=== PATIENT | female | born 1980 | race Caucasian/White ===

== ENCOUNTER 2020-04-29 17:58 | Inpatient (IN) | payer OTHER ==
[2020-04-29] MEDS ORDERED: ceFAZolin 3 GM in SODIUM CHLORIDE 0.9% 100 ML IVPB ONE (18:17)
[2020-04-29] MEDS ORDERED: CITRIC ACID-SODIUM CITRATE 15 ML CUP PO ONE (18:17)
[2020-04-29] MEDS ORDERED: CARBOPROST TROMETHAMINE 250 MCG/ML 1 ML AMP IM PRN (18:20)
[2020-04-29] MEDS ORDERED: METHYLERGONOVINE 0.2 MG/ML 1 ML AMP IM PRN (18:20)
[2020-04-29] MEDS ORDERED: TERBUTALINE 1 MG/ML VIAL SQ PRN (18:20)
[2020-04-29] MEDS ORDERED: OXYTOCIN 10 UNIT/ML 1 ML VIAL IM PRN (18:20)
[2020-04-29] MEDS ORDERED: LIDOCAINE 0.5% (PF) 5 MG/ML (50 ML SDV) SQ PRN (18:20)
[2020-04-29] MEDS: LACTATED RINGERS 1,000 ML IV SCH (18:28)
[2020-04-29 18:41] LABS: Basophils % (A) 0 %; Eosinophils % (A) 0 %; HCT 40.3 % (34.0-46.0); HGB 13.8 gm/dL (11.4-16.0); Lymphocytes % (A) 8 %; MCH 29.8 pg (25.0-35.0); MCHC 34.1 g/dL (31.0-37.0); MCV 87.2 fL (80.0-100.0); Mean Platelet Volume 8.2; Monocytes # (A) 0.5 k/uL (0-1.0); Monocytes % (A) 4 %; Neutrophils # (A) 11.3 k/uL (1.3-7.7); Neutrophils % (A) 88 %; Platelet Count 166 k/uL (150-450); RBC 4.63 m/uL (3.80-5.40); RDW 14.2 % (11.5-15.5); WBC 12.9 k/uL (3.8-10.6)
[2020-04-29] MEDS ORDERED: KETOROLAC 15 MG/ML 1 ML VIAL ONE (18:42)
[2020-04-29] MEDS ORDERED: ONDANSETRON 4 MG/2 ML VIAL ONE (18:42)
[2020-04-29] MEDS ORDERED: HYDROmorphone (PF) 1 MG/ML ONE (18:42)
[2020-04-29] MEDS ORDERED: SUCCINYLCHOLINE CHLORIDE 100 MG/5 ML SYR IV ONE (18:42)
[2020-04-29] MEDS ORDERED: fentaNYL (PF) 50 MCG/ML 2 ML AMP ONE (18:42)
[2020-04-29] MEDS ORDERED: PROPOFOL 10 MG/ML 20 ML VIAL IV ONE (18:42)
--- NOTE | 2020-04-29 19:43 | XR ---
EXAM: Abdomen radiograph. HISTORY: Postoperative for sponge count. TECHNIQUE: Supine AP view. COMPARISON: None available. FINDINGS: There are nondilated bowel loops with a nonobstructive pattern. There are no pathologic calcification s. No acute osseous abnormality seen. Pelvic post surgical changes with multiple skin parish seen. IMPRESSION: No radiopaque foreign body seen.
--- NOTE | 2020-04-29 19:57 | P.HPOB ---
History of Present Illness H&P Date: 04/29/20 Chief Complaint: Breech presentation, complete dilation This is a 39-year-old female 6 para 5 with an estimated date of confinement of 04/18/2020, who was being seen by a emt/paramedic named Vicky. She had apparently been in labor for approximately 3 days and said that she was tired of it and wanted a section. They took her to [facility] at about 2 in the afternoon today. They checked her and told her that she was 8 cm with a bulging bag and watched her for approximately 1 hour. At that time the patient decided that she did want to go home and to continue laboring at home. She had artificial rupture of membranes at approximately 2:45 PM with apparently clear fluid. She began feeling pushy at approximately 4 PM with contractions approximately 5-7 minutes apart. She was pushing in a pool when the emt/paramedic noticed meconium and she checked her at approximately 5 PM and felt breech presentation. At this point in time the patient stated she wanted a section and they brought her to the hospital. The patient was trying very hard not to push when she arrived at the hospital. The emt/paramedic states that she declined all blood work. Obstetrical history: . History of 5 vaginal deliveries at term with no complications. Review of Systems Gastrointestinal: Reports abdominal pain Genitourinary: Reports pelvic pain, Reports Musculoskeletal: Reports low back pain Past Medical History Past Medical History: No Reported History Past Surgical History: Cholecystectomy Past Anesthesia/Blood Transfusion Reactions: No Reported Reaction Past Psychological History: No Psychological Hx Reported Smoking Status: Never smoker Past Alcohol Use History: None Reported Past Drug Use History: None Reported Medications and Allergies Home Medications Medication Instructions Recorded Confirmed Type No Known Home Medications 04/29/20 04/29/20 History Allergies Allergy/AdvReac Type Severity Reaction Status Date / Time No Known Allergies Allergy Verified 04/29/20 18:17 Exam Osteopathic Statement: *. No significant issues noted on an osteopathic structural exam other than those noted in the History and Physical/Consult. Intake and Output 04/29/20 04/29/20 04/29/20 06:59 14:59 22:59 Other: Weight 128.367 kg Gen.: Well-developed well-nourished female in obvious pain HEENT: Within normal limits Heart: Regular rate and rhythm Lungs: Clear to auscultation bilaterally Abdomen: Perineum: Thick meconium noted. Pelvic exam: Complete dilation with buttocks palpated and meconium fluid noted by nursing staff. heart tones: 120s with fair variability but intermittent heart tones noted due to patient movement. Contractions: Every 5 minutes Extremities: Negative Homans Results Result Diagrams: 04/29/20 18:24 Abnormal Lab Results - Last 24 Hours (Table) 04/29/20 Range/Units 18:24 WBC 12.9 H (3.8-10.6) k/uL Neutrophils # 11.3 H (1.3-7.7) k/uL Assessment and Plan (1) Breech presentation at Current Visit: Yes Status: Acute Code(s): O32.1XX0 - MATERNAL CARE FOR BREECH PRESENTATION, UNSP SNOMED Code(s): 832559296 (2) Meconium in amniotic fluid Current Visit: Yes Status: Acute Code(s): P96.83 - MECONIUM STAINING SNOMED Code(s): 069358441 (3) No care in current Current Visit: Yes Status: Acute Code(s): O09.30 - SUPRVSN OF PREG W INSUFFICIENT ANTENAT CARE, UNSP TRIMESTER SNOMED Code(s): 282507301 (4) Post term , 41 weeks Current Visit: Yes Status: Acute Code(s): O48.0 - POST-TERM ; Z3A.41 - 41 WEEKS GESTATION OF SNOMED Code(s): 49189125823293 Plan: Admission for urgent section due to breech presentation and complete dilation. Patient and her emt/paramedic are counseled regarding risks and benefits of section and she has agreed to proceed. I have discussed the risks, benefits, and alternative therapies for the above- mentioned procedure and for both sedation/anesthesia as well as necessary blood products administration, if indicated, as they pertain to this patient. The patient has indicated her understanding and acceptance of the risks and procedures discussed.
--- NOTE | 2020-04-29 20:04 | P.OP ---
Date of Procedure: 04/29/20 Preoperative Diagnosis: 1. Intrauterine at approximately 41 weeks. 2. Breech presentation. 3. Complete dilation. 4. Meconium. 5. No care, seeing a core layer machine operator Postoperative Diagnosis: Same Procedure(s) Performed: Primary low transverse section Anesthesia: ANU Surgeon: Sobia Olmedo Plaster Machine Tender #1: Zoe White Estimated Blood Loss (ml): 700 Pathology: other (Placenta) Condition: stable Disposition: floor Indications for Procedure: This is a 39-year-old female 6 para 5 at approximately 41 weeks who presented in complete dilation with thick meconium and breech presentation. I have discussed the risks, benefits, and alternative therapies for the above- mentioned procedure and for both sedation/anesthesia as well as necessary blood products administration, if indicated, as they pertain to this patient. The patient has indicated her understanding and acceptance of the risks and procedures discussed. Operative Findings: A viable male infant is noted in the diane breech presentation with scores of 9 at 1 minute and 9 at 5 minutes and weight of 8 lbs. 11 oz. Thick meconium was noted. Normal uterus tubes and ovaries are noted. Description of Procedure: The patient is taken to the operating room where she is placed in the dorsal supine position with leftward tilt. She is prepped and draped in the normal sterile fashion. Gen. anesthesia is given due to buttocks seen on the operating table. A Pfannenstiel skin incision was made with a scalpel. A second knife was used to carry the incision down to the underlying layer of fascia. The fascia was nicked in the midline with a scalpel and then extended laterally bilaterally with Rodriguez scissors. The anterior lip of the fascia was grasped with 2 Mis clamps and then dissected off the underlying rectus muscle in the midline with Rodriguez scissors. The inferior aspect of the fascial incision was grasped with 2 Mis clamps and dissected off the underlying rectus muscle and the midline with Rodriguez scissors. Next the peritoneum layer was tented up with 2 hemostats and then entered sharply with the scalpel. The incision is extended superiorly and inferiorly with Metzenbaum scissors. Next a DeLee retractor is placed. The vesicouterine peritoneum is entered sharply with Metzenbaum scissors and extended laterally bilaterally with Metzenbaum scissors and then the bladder flap is pushed inferiorly. The lower uterine segment is incised in transverse fashion with the scalpel and then bluntly entered with a hemostat. Thick meconium fluid is noted. The incision was then extended laterally bilaterally with 2 fingers. Next the buttocks is delivered through the incision followed by the remainder the body and the head in a flexed position. Nose and mouth are bulb suctioned. Cord is clamped and cut. Infant is taken to warmer by nursing staff to awaiting cutter grinder. Cord segment was obtained. Uterine fundus is gently massaged and placenta is delivered manually. Uterus is exteriorized and cleared of all clots and debris. Uterine incision is closed with 0 Vicryl suture in a running locked fashion. A second layer of 0 Vicryl suture is used in a running fashion for hemostasis. Several other interrupted stitches are placed for hemostasis. Once adequate hemostasis as assured, the vesicouterine peritoneum is reapproximated with 2-0 Vicryl suture in a running fashion. Posterior cul-de-sac is suctioned of all clots and debris. Uterus is returned to the abdomen. Incision is noted to be hemostatic. Peritoneal layer is closed with 0 Vicryl suture in a running fashion. Fascia layer is then closed with 0 PDS suture with 2 sutures meeting in the midline and the knots buried in either side and in the midline. The subcutaneous tissue was then closed with 2-0 Vicryl suture. Skin layer was then closed with parish. All sponge and needle counts are correct. The patient is taken to recovery room in stable condition.
[2020-04-29 20:18] VITALS: RESP 16
[2020-04-29] MEDS ORDERED: HYDROcodone/APAP 7.5-325MG 1 EACH TAB PO PRN (20:36)
[2020-04-29] MEDS ORDERED: OXYTOCIN 20 UNITS/1000 ML NS 1,000 ML IV SCH (20:36)
[2020-04-29] MEDS ORDERED: diphenhydrAMINE 50 MG CAP PO PRN (20:36)
[2020-04-29] MEDS ORDERED: HYDROcodone/APAP 5-325MG 1 EACH TAB PO PRN (20:36)
[2020-04-29] MEDS ORDERED: ZOLPIDEM 5 MG TAB PO PRN (20:36)
[2020-04-29] MEDS ORDERED: KETOROLAC 15 MG/ML 1 ML VIAL IVP PRN (20:36)
[2020-04-29] MEDS ORDERED: IBUPROFEN 600 MG TAB PO PRN (20:36)
[2020-04-29] MEDS ORDERED: ONDANSETRON 4 MG/2 ML VIAL IVP PRN (20:36)
[2020-04-29] MEDS ORDERED: diphenhydrAMINE 50 MG/ML 1 ML VIAL IVP PRN ×2 (20:36)
[2020-04-29] MEDS ORDERED: SIMETHICONE 80 MG CHEWABLE PO PRN (20:36)
[2020-04-29] MEDS ORDERED: METOCLOPRAMIDE 5 MG/ML 2 ML VIAL IVP PRN (20:36)
[2020-04-29] MEDS ORDERED: NALOXONE 0.4 MG/ML 1 ML VIAL IV PRN (20:36)
[2020-04-29] MEDS ORDERED: diphenhydrAMINE 25 MG CAP PO PRN (20:36)
[2020-04-29] MEDS ORDERED: HYDROmorphone PCA 10 MG/50 ML BAG IV PRN (20:36)
[2020-04-29] MEDS ORDERED: LANOLIN CREAM 5 GM TUBE TOPICAL PRN (20:36)
[2020-04-29] MEDS ORDERED: ACETAMINOPHEN TAB 325 MG TAB PO PRN (20:36)
[2020-04-30] MEDS: SENNOSIDES-DOCUSATE SODIUM 1 EACH TAB PO SCH ×3 (01:52→20:51)
[2020-04-30] MEDS: LACTATED RINGERS 1,000 ML IV SCH (03:29)
--- NOTE | 2020-04-30 12:22 | P.PNOBGPC ---
Subjective - Subjective Principal diagnosis: Status post primary section postoperative day #1 Interval history: Patient is doing well. She has only been using ibuprofen for pain. She has urinated without difficulty. She is not passing flatus or bowel movement yet. She is breast-feeding without difficulty. She had expressed to the nurse that she would like to go home today however she has not passed flatus yet and she has parish in place that will need to be removed and a day or 2. Bleeding is minimal. Patient reports: Reports appetite normal, Reports voiding normally, Reports pain well controlled, Reports ambulating normally [place]: doing well, nursing well Objective - Vital Signs Latest vital signs: Vital Signs Temp Pulse Resp BP Pulse Ox 04/30/20 07:56 98.7 F 97 16 118/76 98 04/30/20 03:36 98.7 F 100 16 114/65 99 04/30/20 00:00 98.2 F 84 16 125/58 04/29/20 21:44 98.2 F 82 16 140/68 04/29/20 21:14 98.1 F 90 16 136/59 04/29/20 20:44 98.5 F 90 16 133/52 04/29/20 20:29 98.6 F 89 16 130/62 04/29/20 20:14 92 16 132/64 04/29/20 20:00 16 04/29/20 19:59 90 16 127/59 04/29/20 19:44 98.5 F 97 14 131/60 04/29/20 18:16 99.0 F 106 H 16 136/76 Intake and Output 04/29/20 04/30/20 04/30/20 22:59 06:59 14:59 Intake Total 250 Output Total 250 1300 Balance -250 -1050 Intake: Oral 250 Output: Urine 250 1300 Uretheral ([place]) 850 Other: Voiding Method Toilet # Voids 1 Weight 128.367 kg - Exam Extremities: Present: normal. Absent: tenderness, edema Abdomen: Present: normal appearance, soft (Positive bowel sounds 4). Absent: distention, tenderness Incision: Present: normal, dry, intact. Absent: erythematous Uterus: Present: normal, firm. Absent: tenderness - Labs Labs: Abnormal Lab Results - Last 24 Hours (Table) 04/29/20 Range/Units 18:24 WBC 12.9 H (3.8-10.6) k/uL Neutrophils # 11.3 H (1.3-7.7) k/uL Assessment and Plan Assessment: Status post primary section postoperative day #1 (1) Breech presentation at Current Visit: Yes Status: Acute Code(s): O32.1XX0 - MATERNAL CARE FOR BREECH PRESENTATION, UNSP SNOMED Code(s): 184133780 (2) Meconium in amniotic fluid Current Visit: Yes Status: Acute Code(s): P96.83 - MECONIUM STAINING SNOMED Code(s): 614805472 (3) No care in current Current Visit: Yes Status: Acute Code(s): O09.30 - SUPRVSN OF PREG W INSUFFICIENT ANTENAT CARE, UNSP TRIMESTER SNOMED Code(s): 508967689 (4) Post term , 41 weeks Current Visit: Yes Status: Acute Code(s): O48.0 - POST-TERM ; Z3A. 41 - 41 WEEKS GESTATION OF SNOMED Code(s): 76509871009203 Plan: Patient refused blood work this morning. I encouraged patient to stay until at least tomorrow morning when I can remove her parish. She is agreeable to this. I have told her otherwise if she feels like she must go home today, she will need to follow-up in the office in a couple days for staple removal. Continue with postoperative and care today.
[2020-05-01 00:02] VITALS: TEMP 98.5
[2020-05-01 07:37] VITALS: BP 113/62; PULSE 104
[2020-05-01] MEDS: SENNOSIDES-DOCUSATE SODIUM 1 EACH TAB PO SCH (07:42)
--- NOTE | 2020-05-01 08:12 | P.PNOBGPC ---
Subjective - Subjective Principal diagnosis: Status post primary low transverse section postoperative day #2 Interval history: Patient is doing well. She is passing flatus but no bowel movement yet. She is not taking anything for pain. Lochia is decreasing. She is breast-feeding w ithout difficulty. Patient reports: Reports appetite normal, Reports voiding normally, Reports pain well controlled, Reports ambulating normally : doing well, nursing well Objective - Vital Signs Latest vital signs: Vital Signs Temp Pulse Resp BP Pulse Ox 05/01/20 07:36 98.5 F 104 H 16 113/62 98 05/01/20 00:00 98.5 F 97 16 121/86 99 04/30/20 16:00 98.8 F 120 H 16 122/82 04/30/20 12:00 98.1 F 110 H 16 120/75 Intake and Output 04/30/20 05/01/20 05/01/20 22:59 06:59 14:59 Other: Voiding Method Toilet # Voids 1 - Exam Extremities: Present: normal, edema (Trace). Absent: tenderness Abdomen: Present: normal appearance, soft. Absent: distention, tenderness Incision: Present: normal, dry, intact. Absent: erythematous Uterus: Present: normal, firm. Absent: tenderness Assessment and Plan Assessment: Status post primary low transverse section postoperative day #2 (1) Breech presentation at Current Visit: Yes Status: Acute Code(s): O32.1XX0 - MATERNAL CARE FOR BREECH PRESENTATION, UNSP SNOMED Code(s): 700797999 (2) Meconium in amniotic fluid Current Visit: Yes Status: Acute Code(s): P96.83 - MECONIUM STAINING SNOMED Code(s): 102608192 (3) No care in current Current Visit: Yes Status: Acute Code(s): O09.30 - SUPRVSN OF PREG W INSUFFICIENT ANTENAT CARE, UNSP TRIMESTER SNOMED Code(s): 107665366 (4) Post term , 41 weeks Current Visit: Yes Status: Acute Code(s): O48.0 - POST-TERM ; Z3A.41 - 41 WEEKS GESTATION OF SNOMED Code(s): 05368926765714 Plan: Discharge home today. Follow-up in the office in 2 weeks for a postoperative check. Will remove parish prior to discharge.
--- NOTE | 2020-05-01 08:15 | P.DS ---
Providers Date of admission: 04/29/20 18:13 Expected date of discharge: 05/01/20 Attending physician: Sobia Olmedo Primary care physician: Stated None - Discharge Diagnosis(es) (1) Breech presentation at Current Visit: Yes Status: Acute (2) Meconium in amniotic fluid Current Visit: Yes Status: Acute (3) No care in current Current Visit: Yes Status: Acute (4) Post term , 41 weeks Current Visit: Yes Status: Acute Hospital Course: This is a 39-year-old female 6 para 5 at 41-5/7 weeks who presents with complete dilation and breech presentation. She had been attempting a home with a carpet floor layer apprentice and they discovered the baby was breech and came right to the hospital. She underwent a primary low transverse section under general anesthesia on 04/29/2020. Her postoperative course has been uncomplicated. She is had very minimal pain. Lochia is decreasing. Pain is well-controlled with e ither nothing or ibuprofen. She is passing flatus but no bowel movement. Vital signs are stable. Abdomen is soft with positive bowel sounds 4. Incision is clean dry and intact with parish in place. Extremities show negative Homans. Impression is status post primary low transverse section postoperative day #2. Plan is to discharge home today. Routine postoperative and instructions are given. [place] will be removed and Steri-Strips placed prior to discharge. She is advised to call the office if she has any further questions or concerns prior to her postoperative appointment. She is advised follow-up in 2 weeks for a postoperative check. Procedures: Primary low transverse section under general anesthesia for delivery of a viable male on 04/29/2020 Patient Condition at Discharge: Stable Plan - Discharge Summary New Discharge Prescriptions: No Action No Known Home Medications Discharge Medication List No Known Home Medications 04/29/20 [History] Follow up Appointment(s)/Referral(s): Sobia Olmedo DO [Doctor of Osteopathic Medicine] - 2 Weeks Activity/Diet/Wound Care/Special Instructions: Instructions 1. Do not begin any exercise program for 3 weeks. 2. Do not resume sexual relations for 3 weeks or longer if uncomfortable. 3. You may take tub baths or showers at any time. 4. You may use tampons if desired after 3 weeks. 5. Keep the area of episiotomy (stitches) clean and dry. 6. If you are not nursing, wear a good fitting, supportive bra during the day and limit fluid intake for at least 1 week to prevent breast engorgement. 7. Call the office, [phone], within the next week to make appointment for your 6 week checkup if it has not already been made. 8. Report any of the following occurrences to the doctor promptly: a. Heavy, excessive bleeding b. Chills, fever c. Burning or frequency of urination d. Pain or redness and breasts if nursing e. Increasing pain or swelling in episiotomy (stitches). In addition to the above instructions, the following additional should be followed: 1. No heavy lifting or straining (exercising) until after 6 week checkup. 2. Keep abdominal incision clean and dry: You may wear a dressing if more comfortable. 3. Make office appointment for 10 days after going home or as instructed by her doctor. Discharge Disposition: HOME SELF-CARE
== END 2020-05-01 09:45 | disposition home or self-care (01) | DRG 788 ==
LOC: FBPOP 17:58 → 4FBP 18:13
PROVIDERS: ADMIT Obstetrics & Gynecology; ATTEND Obstetrics & Gynecology
PROC: 10D00Z1 Extraction of Products of Conception, Low, Open Approach (ICD-10-PCS; principal; 2020-04-29 18:30)
DX: O64.1XX0 Obstructed labor due to breech presentation, not applicable or unspecified (principal); O48.0 Post-term pregnancy; O77.0 Labor and delivery complicated by meconium in amniotic fluid; Z37.0 Single live birth; Z3A.41 41 weeks gestation of pregnancy; Z90.49 Acquired absence of other specified parts of digestive tract; Z87.19 Personal history of other diseases of the digestive system; Z98.890 Other specified postprocedural states
CPT/HCPCS: 74018; 85025; 86850; 86900; 86901; 88307